=== PATIENT | female | born 1990 | race Caucasian/White ===

== ENCOUNTER 2016-10-08 09:02 | Emergency (ER) | payer OTHER, MEDICAID ==
[2016-10-08 09:05] VITALS: BP 120/88; PULSE 92; RESP 18; TEMP 98.5; O2SAT 100
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
[2016-10-08] MEDS ORDERED: CYCL1TAB29 PO ×2 (09:13→10:09)
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
[2016-10-08] MEDS ORDERED: MOTR200T4 PO (10:09)
[2016-10-08] MEDS ORDERED: CYCLOBENZAPRINE HCL 10 MG TAB PO ONE (10:15)
[2016-10-08] MEDS ORDERED: IBUPROFEN 600 MG TAB PO ONE (10:15)
== END 2016-10-08 10:43 | disposition home or self-care (01) ==
LOC: PHED 09:02
DX: S39.012A Strain of muscle, fascia and tendon of lower back, initial encounter (principal); M54.2 Cervicalgia; G89.29 Other chronic pain; V43.62XA Car passenger injured in collision with other type car in traffic accident, initial encounter; Y93.89 Activity, other specified; Y92.410 Unspecified street and highway as the place of occurrence of the external cause; Y99.8 Other external cause status
CPT/HCPCS: 72125; 72131; 84703